=== PATIENT | female | born 1930 | race Caucasian/White ===

== ENCOUNTER → 2016-11-26 | Outpatient (CLI) | payer OTHER | LOC: BMCIMAGING 15:45 | PROVIDERS: ATTEND Family Medicine | DX: J44.9 Chronic obstructive pulmonary disease, unspecified (principal); J40 Bronchitis, not specified as acute or chronic ==

== ENCOUNTER → 2016-12-19 | Outpatient (CLI) | payer OTHER | LOC: FIMAGING 10:38 | DX: Z12.31 Encounter for screening mammogram for malignant neoplasm of breast (principal); N95.0 Postmenopausal bleeding; R93.8 Abnormal findings on diagnostic imaging of other specified body structures; N83.202 Unspecified ovarian cyst, left side; D25.1 Intramural leiomyoma of uterus | CPT/HCPCS: G0202 ==

== ENCOUNTER → 2016-12-30 | Outpatient (CLI) | payer OTHER | LOC: FIMAGING 14:17 | PROVIDERS: ATTEND Obstetrics & Gynecology | DX: Z03.89 Encounter for observation for other suspected diseases and conditions ruled out (principal) | CPT/HCPCS: G0206 ==

== ENCOUNTER 2017-02-11 10:39 | Day surgery (SDC) | payer OTHER ==
[2017-02-11] MEDS ORDERED: SILVER NITRATE APPLICATOR 1 APPL TP ONE (10:50)
[2017-02-11] MEDS ORDERED: LIDOCAINE 1% 2 ML INJ ID PRN (11:11)
[2017-02-11] MEDS ORDERED: LR 1,000 ML IV ONE (11:11)
[2017-02-11] MEDS ORDERED: MIDAZOLAM 2 MG/2 ML VIAL IVP ONE ×2 (11:53→13:07)
--- NOTE | 2017-02-11 11:56 | PDANEPAE ---
ANE Past Medical History - Cardiovascular History Hx Hypertension: No Hx Arrhythmias: Yes Hx Chest Pain: No Hx Coronary Artery / Peripheral Vascular Disease: No Hx CHF / Valvular Disease: No Hx Palpitations: Yes Cardiovascular History Comment: SVTs- LAST EPISODE 04/2016. HYPERLIPIDEMIA - Pulmonary History Hx COPD: No Hx Asthma/Reactive Airway Disease: No Hx Recent Upper Respiratory Infection: No Hx Oxygen in Use at Home: No Hx Sleep Apnea: No Sleep Apnea Screening Result - Last Documented: Negative - Neurologic History Hx Cerebrovascular Accident: No Hx Seizures: No Hx Dementia: No - Endocrine History Hx Diabetes: No - Renal History Hx Renal Disorders: No - Liver History Hx Hepatic Disorders: No - Neurological & Psychiatric Hx Hx Neurological and Psychiatric Disorders: No - Cancer History Hx Cancer: Yes Cancer History Comment: MELANOMA REMOVED 5 YRS AGO. SQUAMOUS CELL - Congenital Disorder History Hx Congenital Disorders: No - GI History Hx Gastrointestinal Disorders: Yes Gastrointestinal History Comment: CONSTIPATION RECURRENT - Other Health History Other Health History: NEG - Chronic Pain History Chronic Pain: Yes (GENERALIZED ACHING AT TIMES) - Surgical History Prior Surgeries: APPENDECTOMY. BREAST BXS. COLONOSCOPY. DENTAL IMPLANTS ANE Review of Systems - Exercise capacity METS (RN): 4 METS ANE Patient History - Allergies Allergies/Adverse Reactions: No Known Allergies Allergy (Unverified 01/28/17 14:18) - Home Medications Home Medications: Blephamide Eye Drops 01/29/17 [Last Taken 02/02/17] Metoprolol Succinate 01/29/17 [Last Taken 02/10/17 19:00] - NPO status NPO Since - Liquids (Date): 02/11/17 NPO Since - Liquids (Time): 09:00 NPO Since - Solids (Date): 02/10/17 NPO Since - Solids (Time): 22:00 - Smoking Hx Smoking Status: Former smoker ANE Labs/Vital Signs - Vital Signs Blood Pressure: 152/90 Heart Rate: 68 Respiratory Rate: 14 O2 Sat (%): 95 Height: 160.02 cm Weight: 51.71 kg ANE Physical Exam - Airway Neck exam: FROM - ASA Status ASA Status: III (Hx of atrial tachycardia)
[2017-02-11 11:57] LABS: % IMMATURE GRANULYOCYTES 0.2 % (0.0-1.1); ABSOLUTE IMMATURE GRANULOCYTES 0.01 10^3/uL (0.00-0.10); ADD DIFF? NO; ADD MORPH? NO; ADD SCAN? NO; ATYPICAL LYMPHOCYTE FLAG 0 (0-99); FRAGMENT RBC FLAG 0 (0-99); HEMATOCRIT 37.1 % (38.0-47.0); HEMOGLOBIN 12.5 g/dL (12.6-16.3); LEFT SHIFT FLG 0 (0-99); LIPEMIA HEMOLYSIS FLAG 80 (0-99); MEAN CELL HEMOGLOBIN 30.6 pg (27.9-34.1); MEAN CELL HEMOGLOBIN CONCENTR. 33.7 g/dL (32.4-36.7); MEAN CELL VOLUME 90.9 fL (81.5-99.8); MEAN PLATELET VOLUME 9.4 fL (8.7-11.7); PLATELET CLUMPS FLAG 10 (0-99); PLATELET COUNT 172 10^3/uL (150-400); RED BLOOD CELL COUNT 4.08 10^6/uL (4.18-5.33); RED CELL DISTRIBUTION WIDTH 13.5 % (11.5-15.2)
[2017-02-11] MEDS ORDERED: fentaNYL 100 MCG/2 ML INJ ONE (11:59)
[2017-02-11] MEDS ORDERED: PROPOFOL/EMULSION 500 MG/50 ML BOTTLE IV ONE (12:00)
--- NOTE | 2017-02-11 12:03 | PDHPUP ---
History & Physical Update H&P update statement: This history and physical update is based on an assessment of the patient which was completed after admission or registration (within 24 hours), but prior to the surgery/procedure. H&P update: no change in patient's condition since H&P completed (Waiting on UA and CBC results. If normal, will proceed.)
[2017-02-11] MEDS ORDERED: NALOXONE HCL 0.4 MG/ML INJ IVP PRN (13:06)
--- NOTE | 2017-02-11 13:07 | POSTANESTH ---
Post Anesthetic Evaluation Respiratory Status: Normal, Stable Level of Consciousness/Mental Status: Can Participate in Eval Pain Control: Adequate, Prn Tx Ordered Nausea/Vomiting Control: Adequate, Prn Tx Ordered Complications Possibly Related to Anesthesia: None Noted
[2017-02-11] MEDS ORDERED: HYDROCODONE/APAP 5/325 TAB PO PRN (13:18)
[2017-02-11] MEDS ORDERED: ONDANSETRON DISINTEGRATING 4 MG TAB PO PRN (13:18)
--- NOTE | 2017-02-11 13:23 | POSTOPPROG ---
Post Op Note Date of Operation: 02/11/17 Surgeon: Mone Rodriguez Global Account Director: none Anesthesiologist: Messi Anesthesia: GET(General Endotracheal) Pre-op Diagnosis: Menopausal bleeding, endometrial mass Post-op Diagnosis: Menopausal bleeding, cervical discharge Indication: Menopausal bleeding Procedure: D&C/hysteroscopy Findings: normal endometrial cavity, no lesions or masses; yellow cervical/ uterine dc Inf/Abcess present in the surg proc area at time of surgery?: No Depth: Organ Space EBL: Minimal Total fluids administered: 500cc Complications: none Specimen(s): 1) Cervical discharge culture 2) ECC 3) Endometrial curettings
[2017-02-11 13:32] VITALS: PULSE 53; TEMP 97.7
[2017-02-11 14:23] VITALS: BP 166/89
[2017-02-11] MEDS ORDERED: KETOROLAC 15 MG/1 ML SDV IVP ONE (14:30)
[2017-02-11 14:33] VITALS: RESP 14
[2017-02-11 15:04] VITALS: O2SAT 97
--- NOTE | 2017-02-12 23:45 | GOP ---
[f rep st] OPERATIVE REPORT DATE OF OPERATION: 02/11/2017 SURGEON: Mone Rodriguez MD DIRECTOR OF PROMOTIONS: None. ANESTHESIA: General. PREOPERATIVE DIAGNOSIS: 1. Postmenopausal bleeding. 2. Endometrial mass. POSTOPERATIVE DIAGNOSIS: 1. Postmenopausal bleeding. 2. Cervical discharge. PROCEDURE PERFORMED: Hysteroscopy, dilation and curettage. FINDINGS: 1. Exam under anesthesia revealed an anteverted uterus and no adnexal masses. 2. Intraoperative findings revealed a normal-appearing endometrial cavity visualized hysteroscopically. The patient did have copious amounts of yellow discharge noted upon dilating the cervical canal open at the beginning of the procedure and a culture was obtained of this discharge and sent to the lab. SPECIMENS: 1. Cervical culture. 2. Endocervical curettings. 3. Endometrial curettings. ESTIMATED BLOOD LOSS: Minimal. INDICATIONS: The patient is an 86-year-old female, who reported a history of postmenopausal bleeding. On ultrasound imaging she had a small 8 x 11 mm endometrial mass identified. The patient was counseled regarding the recommendation to proceed with a hysteroscopy, dilation and curettage. She agreed to proceed. DESCRIPTION OF PROCEDURE: The patient was taken to the operating room, where general anesthesia was found be adequate. The patient was prepared and draped in normal sterile fashion in the dorsal lithotomy position. After confirmation of adequate anesthesia, a speculum was placed in the patient's vagina and a single-tooth tenaculum was placed on the anterior lip of the cervix. The cervix was then gently dilated up to 6 mm using Hegar dilators with no immediate complications. Upon dilating the cervix, copious amounts of yellow discharge were noted from the cervix and the uterus. A culture was obtained from this discharge. A 5 mm 0 degree hysteroscope was then placed into the cervix and advanced into the uterine cavity easily with no complications. The uterine cavity was visualized clearly with no endometrial masses noted. Bilateral ostia were seen clearly. The hysteroscope was removed and a sharp endocervical curettage was obtained with a Kevorkian curette. A sharp curettage was then obtained of the endometrial cavity circumferentially and that specimen was sent to Pathology as well. The tenaculum was removed from the cervix and hemostasis obtained with silver nitrate. All sponge, lap counts correct x2. Patient was woken from anesthesia without any complications. She was transferred to the PACU in stable and good condition. COMPLICATIONS: None. DRAINS: None. IV FLUIDS: 500 cc. URINE OUTPUT: None. FLUID DEFICIT: 150 cc. /[id number]/MODL MTDD
== END 2017-02-11 14:55 | disposition home or self-care (01) ==
LOC: FSGY 10:39
PROVIDERS: ATTEND Obstetrics & Gynecology
PROC: 0UDB8ZX Extraction of Endometrium, Via Natural or Artificial Opening Endoscopic, Diagnostic (ICD-10-PCS; principal; 2017-02-11 12:00)
DX: N95.0 Postmenopausal bleeding (principal); N89.8 Other specified noninflammatory disorders of vagina; R93.8 Abnormal findings on diagnostic imaging of other specified body structures; N83.202 Unspecified ovarian cyst, left side; I47.1 Supraventricular tachycardia; N36.2 Urethral caruncle; E78.4 Other hyperlipidemia; I45.10 Unspecified right bundle-branch block; I10 Essential (primary) hypertension; Z82.49 Family history of ischemic heart disease and other diseases of the circulatory system; Z87.891 Personal history of nicotine dependence; Z85.820 Personal history of malignant melanoma of skin
CPT/HCPCS: J2250; J2704; J3010

== ENCOUNTER → 2018-01-14 | Outpatient (CLI) | payer OTHER | LOC: FIMAGING 14:53 | PROVIDERS: ATTEND Obstetrics & Gynecology | DX: N83.202 Unspecified ovarian cyst, left side (principal); D25.1 Intramural leiomyoma of uterus; Z78.0 Asymptomatic menopausal state ==